=== PATIENT | female | born 1945 | race Caucasian/White ===

== ENCOUNTER 2017-11-02 07:30 | Inpatient (IN) | payer OTHER, MEDICARE ==
[~2017-11-02] VITALS: Ht 167.6 cm; Wt 79.3 kg
[~2017-11-02 07:30] MED LIST: AMLO10TA2 PO; CLON0.5T PO; ECASA81 PO; EZET10 PO; FLUO20CA12 PO; LEVO125T4 PO; LIPI10TA PO; LOSA100T PO; METF500T PO; OMEP20TA93 PO; SPIR25TA PO; TYLE325T PO
[2017-11-02] MEDS ORDERED: SODIUM CHLORID 0.9% 500 ML IV PRN (08:30)
[2017-11-02] MEDS ORDERED: LACTATED RINGER'S 1000 ML IV PRN (08:30)
[2017-11-02] MEDS ORDERED: CHLORHEXIDINE GLUCONATE 2 % 1 PACK (2 CLOTHS) TOPICAL PRN (08:30)
[2017-11-02] MEDS ORDERED: POVIDONE IODINE 5% (ANTISEPSIS KIT) 4 APPLICATIONS EACH NARE PRN (08:30)
[2017-11-02] MEDS ORDERED: METOPROLOL TARTRATE 25 MG TAB PO PRN (08:30)
[2017-11-02] MEDS ORDERED: INSULIN HUMAN REGULAR 1,000 UNITS/10 ML VIAL SQ PRN (08:30)
[2017-11-02] MEDS ORDERED: ceFAZolin 2 GM PREMIX 50 ML IV SCH (08:45)
[2017-11-02] MEDS ORDERED: VANCOMYCIN 1 GM/200 ML PREMIX IV SCH (08:45)
[2017-11-02] MEDS ORDERED: CHLORHEXIDINE GLUCONATE 4% SOLN 120 ML BTL TOPICAL SCH (08:45)
[2017-11-02] MEDS ORDERED: LORazepam 2 MG/ML VIAL ONE (08:54)
[2017-11-02] MEDS ORDERED: GENTAMICIN SULFATE 80 MG/2 ML VIAL ONE ×2 (09:44→09:53)
[2017-11-02] MEDS ORDERED: VANCOMYCIN HCL 1000 MG VIAL ONE (10:16)
[2017-11-02] MEDS ORDERED: LIDOCAINE HCL 1% PF 5 ML SYRINGE OTHER ONE (12:00)
[2017-11-02] MEDS ORDERED: LACTATED RINGER'S 1000 ML INJ 1,000 ML IV ONE (12:00)
[2017-11-02] MEDS ORDERED: ONDANSETRON HCL 4 MG/2 ML VIAL IV ONE (12:00)
[2017-11-02] MEDS ORDERED: ROCURONIUM INJ 50 MG/5 ML SYRINGE IV PUSH ONE (12:00)
[2017-11-02] MEDS ORDERED: ePHEDrine/NS 25 MG/5 ML SYRINGE IV ONE (12:00)
[2017-11-02] MEDS ORDERED: PROPOFOL 200 MG/20 ML AMP IV ONE (12:00)
[2017-11-02] MEDS ORDERED: BUPIVACAINE/EPINEPHRINE 0.5% 50 ML VIAL ONE (14:05)
[2017-11-02] MEDS ORDERED: ACETAMINOPHEN 1000 MG/100 ML 100 ML IV ONE (14:09)
--- NOTE | 2017-11-02 14:30 | PD.OP ---
cc: Inderjit Isaac MD Operative Report Date of Surgery: Nov 02, 2017 Preoperative Diagnosis: Lumbar spinal stenosis, L4 5. Spondylolisthesis, L4 5, grade 1. Bilateral right greater than left lumbosacral radiculopathy Postoperative Diagnosis: Same. 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 Resection extra dural lesion, L4 5, right, probable synovial cyst Posterior spinal fusion, L4 5. Posterior lateral interbody fusion, L4 5. Posterior spinal segmental agitation, L4 5 Posterior lateral interbody fusion, L4 5. Placement of interbody cage, L4 5. Major bone grafting of the lumbar spine Anesthesia: Gen. Surgeon: Inderjit Isaac Cradle Placer(s): NAGI Valdes Operation and Findings: EBL: 100 ml NOTE: Emily Valdes PA-C was present for the entire surgical procedure as my workers compensation claims assistant. In my medical opinion her skill and care was necessary for proper management of this patient INDICATIONS: This patient is a 72-year-old female with a grade 1 spondylolisthesis at L4 5 associated with a high-grade spinal stenosis. She has right greater than left leg pain. Investigative studies are consistent with a progressive degenerative stenosis. Despite conservative care, the patient continued to be painful and symptomatically. She presents for surgical treatment. INSTRUMENTATION: Facet Link PROCEDURE: The patient brought to the operating room and anesthetized the supine position. The patient positioned prone on the Krunal frame on the Saurabh table. All pressure points are protected. The back was scrubbed with alcohol followed by Hibiclens followed by ChloraPrep and draped sterilely and antibiotics were given within a routine time window. A timeout was done. Lateral radiographic images used to identify the proper level for the procedure. Compared care for the preoperative studies. Skin markings were made anticipating surgical treatment. A midline exposure was accomplished. Dissection exposed L4 5 level and most of the facet of L4. Retractors allowed good visualization to the outer portion of the facet at L4 5 bilaterally. The posterior spinous process was taken down from the cephalad portion of L5 leaving a portion of the cephalad part of the L4 posterior spinous process and ligament to the L3 level. Under the microscope , a high-speed bur was used to remove the lamina allowing a adequate exposure. There was a high-grade stenosis. To the right of midline there was evidence of an extra dural lesion extending from the facet joint, consistent with a synovial cyst. This was resected decompressing completely the crossing L5 nerve root on both sides. Exposure was better to the left side and this allowed facilitation of placement of an interbody cage and decompression. There was a subtotal disc resection. An annulotomy was accomplished for this. The endplates were curetted of cartilaginous material. On the back table a combination of autogenous bone graft and demineralized bone matrix was mixed with 1 cc of Nucel stem cells. This was injected into the disc space having an excellent fill. We used a Stax cage which was placed at midline and elevated to 10 mm. Additional bone graft was placed into the disc space. The facet Link instrumentation system was utilized and held provisionally. Under biplanar fluoroscopy guidewires were placed in good position. Some adjustment for made. Alignment appeared be very satisfactory. We used the 25 oblique angle checking to make sure there across the facet joint in good position. A drill was utilized followed by placement of a 30 mm screws. Screw position appeared be very satisfactory and no complication was appreciated. Additional bone grafting was positioned. The wound had been irrigated With Antibiotic Irrigation Local Anesthesia Was Utilized. A Small Amount of Vancomycin Powder Was Placed Deep Followed by Closing the Fascia and Further Local Block. Minimize Powder Was Placed Adjacent to the Fascia and Then Was Closed with 2-0 Vicryl Followed by 3-0 Vicryl, Steri-Strips and Benzoin and a Sterile Dressing. Intraoperative X-Rays Were Obtained. There Was No Complication Was Appreciated. Alignment Appeared to Be Very Satisfactory. FINDINGS: There was a high-grade stenosis at the L4 5 level. The decompression was very satisfactory. There was an extradural synovial cyst to the right of midline which was resected. There was no complication was appreciated. Inderjit Isaac MD Nov 02, 2017 14:30
[2017-11-02] MEDS ORDERED: HYDR-3580 PO (14:32)
[2017-11-02] MEDS ORDERED: DO NOT ADM ANY ANTICOAGULANT DRUGS PRN (14:45)
[2017-11-02] MEDS ORDERED: MIDAZOLAM HCL 2 MG/2 ML VIAL ONE (14:55)
[2017-11-02] MEDS ORDERED: ALUMINUM/MAGNESIUM/SIMETH 30 ML CUP PO PRN (15:00)
[2017-11-02] MEDS ORDERED: ONDANSETRON HCL 4 MG/2 ML VIAL IV PUSH PRN (15:15)
[2017-11-02] MEDS ORDERED: LACTATED RINGER'S 1000 ML INJ 1,000 ML IV SCH (15:15)
[2017-11-02] MEDS ORDERED: NALOXONE HCL 0.4 MG/ML AMP IV PUSH PRN (15:30)
[2017-11-02] MEDS ORDERED: MORPHINE SULFATE 8 MG/ML INJ IV PUSH PRN (15:45)
[2017-11-02] MEDS ORDERED: Post-op Orders (for Pharmacy) XX ONE (16:00)
--- NOTE | 2017-11-02 16:17 | RADRPT ---
EXAM DATE/TIME: 11/02/2017 14:01 [facility] COMPARISON: No previous studies available for comparison. INDICATIONS : Lumbar spine L4-5 interbody cage with posteriorlateral fusion and facet link. OR. MEDICAL HISTORY : None. SURGICAL HISTORY : None. ENCOUNTER: Initial ACUITY: 1 day PAIN SCORE: Non-responsive. LOCATION: Lumbar L4-5 FINDINGS: Cage is noted at L4-5. Hardware is noted at the L5 level posteriorly. There is grade I anterolisthesi s of L4 in relation to L5. CONCLUSION: Posterior hardware and cage placed within the lower lumbar spine as described above. Grade I anteroli sthesis of L4 in relation to L5. Sohail Low MD on November 02, 2017 at 16:13 Board Certified Radiologist. This report was verified electronically.
[2017-11-02] MEDS ORDERED: ACETAMINOPHEN/HYDROcodone 325 MG/7.5 MG TAB PO PRN (16:45)
[2017-11-02 16:50] VITALS: BP 126/66; PULSE 95; RESP 18; TEMP 95.8; O2SAT 95
[2017-11-02] MEDS ORDERED: BISACODYL 10 MG SUPP RECTAL PRN (17:00)
[2017-11-02] MEDS ORDERED: SOD PHOSPHATE/SOD BIPHOSPHATE (ADULT) ENEMA 133ML PR PRN (17:00)
[2017-11-02] MEDS: metFORMIN HCL 500 MG TAB PO SCH (18:00)
[2017-11-02 20:00] VITALS: BP 129/60; PULSE 101; TEMP 96.2; O2SAT 95
[2017-11-02] MEDS ORDERED: ZOLPIDEM TARTRATE 5 MG TAB PO PRN (21:00)
[2017-11-02] MEDS ORDERED: clonazePAM 0.5 MG TAB PO SCH (21:00)
[2017-11-02] MEDS ORDERED: ATORVASTATIN 10 MG TAB PO SCH (21:00)
[2017-11-03] VITALS: BP 147/64; PULSE 94; RESP 16; TEMP 98; O2SAT 96
[2017-11-03] MEDS: ACETAMINOPHEN/HYDROcodone 325 MG/7.5 MG TAB PO PRN ×3 (00:20→12:42)
[2017-11-03 04:00] VITALS: BP 122/55; PULSE 82; RESP 18; TEMP 97.8; O2SAT 95
[2017-11-03] MEDS ORDERED: LEVOTHYROXINE SODIUM 125 MCG TAB PO SCH (06:00)
[2017-11-03 06:58] LABS: HEMATOCRIT 24.8 % (35.0-46.0); HEMOGLOBIN 8.8 GM/DL (11.6-15.3)
--- NOTE | 2017-11-03 07:58 | PD.ORT.PN ---
Subjective Subjective Remarks Doing well. Able to get to the bedside commode with minimal assistance Pain controlled Objective Vitals Vital Signs Date Time Temp Pulse Resp B/P (MAP) Pulse Ox O2 Delivery O2 Flow Rate FiO2 11/03/17 04:00 97.8 82 18 122/55 (77) 95 11/03/17 00:00 98.0 94 16 147/64 (91) 96 11/02/17 20:00 96.2 101 129/60 (83) 95 11/02/17 16:50 95.8 95 18 126/66 (86) 95 11/02/17 16:15 98.2 92 16 120/62 (81) 95 Room Air 11/02/17 16:00 94 16 121/63 (82) 94 Room Air 11/02/17 15:45 95 16 122/63 (82) 100 Nasal Cannula 2 11/02/17 15:30 99 16 132/64 (86) 98 Nasal Cannula 2 11/02/17 15:15 101 15 136/63 (87) 96 Nasal Cannula 2 11/02/17 15:00 105 15 148/65 (92) 100 Nasal Cannula 3 11/02/17 14:45 98.7 110 16 155/67 (96) 99 Nasal Cannula 3 11/02/17 09:00 98.2 72 18 141/68 (92) 98 I/O 11/02/17 11/02/17 11/02/17 11/03/17 11/03/17 11/03/17 07:00 15:00 23:00 07:00 15:00 23:00 Intake Total 1300 ml 1200 ml 200 ml Output Total 100 ml 350 ml Balance 1200 ml 850 ml 200 ml Intake Oral 1200 ml 200 ml Other 1300 ml Output Urine Total 50 ml 350 ml Estimated Blood Loss 50 ml # Voids 2 Result Diagram: 11/03/17 0504 Objective Remarks Dressing dry. Motor examination both legs normal. Sensation normal. No calf tenderness Assessment & Plan Ortho Post Op Day #: 1 Problem List: Assessment and Plan Lumbar spinal stenosis, L4 5, moderate to severe. Spondylolisthesis L4 5, grade 1. Surgery: Bilateral laminectomy, posterior spinal fusion, posterior spinal instrumentation, interbody cage: POD #1. PLAN: Out of bed with brace [place] for pain. No dressing change. Ambulation with walker. Discharge to home, probably today. Home healthcare. Home physical therapy. Follow-up in 2 weeks Inderjit Isaac MD Nov 03, 2017 07:58
[2017-11-03 08:00] VITALS: BP 147/67; PULSE 89; RESP 16; TEMP 98; O2SAT 95
[2017-11-03] MEDS ORDERED: WALKER WHEELS/F1 MIS (08:00)
[2017-11-03] MEDS ORDERED: COMMODE 3-IN-11 MIS (08:01)
--- NOTE | 2017-11-03 08:01 | HHI.DCPOC ---
Discharge Care Plan Diagnosis: (1) Lumbar spinal stenosis (2) Lumbar spine instability Your Health Problems Are: Incision/Drains Inflammation Goals to Promote Your Health * To prevent worsening of your condition and complications * To maintain your health at the optimal level Directions to Meet Your Goals Take your medications as prescribed Follow your dietary instruction Follow activity as directed Keep your appointments as scheduled Take your immunizations and boosters as scheduled If your symptoms worsen call your PCP, if no PCP go to Urgent Care Center or Emergency Room Smoking is Dangerous to Your Health. Avoid second hand smoke Call the 24-hour hour crisis hotline for domestic abuse at Lulu Prado Nov 03, 2017 08:01
[2017-11-03] MEDS: metFORMIN HCL 500 MG TAB PO SCH (08:02)
--- NOTE | 2017-11-03 08:02 | HHI.FF ---
Face to Face Verification Diagnosis: (1) Lumbar spinal stenosis (2) Lumbar spine instability Physical Therapy Gait training, Safety evaluation, Transfer training, bed to chair S/P Spinal Fusion: Gait training with walker, Weight bearing as tolerated, No twisting of torso, No bending Additional Instructions PT 4 days/wk for 2 weeks. WBAT. Out of bed with lumbar brace for 10 weeks. Walker as needed. Nursing RN Days per Week: 2 x Week(s): 1 Dressing Changes: Do not change dressing Additional Instructions Vitals assessment. Dressing assessment. Do not change unless saturated. I have seen patient Georgina Dillard on 11/03/17. My clinical findings support the need for the requested home health care services because: Limited ability to care for self High risk of falls I certify that my clinical findings support that this patient is homebound because: Post-op weakness Unsteady gait/balance Lulu Prado Nov 03, 2017 08:02
--- NOTE | 2017-11-03 08:03 | HHI.DS ---
Lulu Prado 11/03/17 0803: Discharge Summary Admission Date Nov 02, 2017 at 07:57 Discharge Date: Nov 03, 2017 Admitting Diagnosis see below Diagnosis: (1) Lumbar spinal stenosis Diagnosis: Principal ICD Codes: M48.061 - Spinal stenosis, lumbar region without neurogenic claudication (2) Lumbar spine instability Diagnosis: Principal ICD Codes: M53.2X6 - Spinal instabilities, lumbar region Brief History This is a 72 year old female patient CBC/BMP: 11/03/17 0504 Significant Findings Laboratory Tests Test 11/03/17 05:04 Hemoglobin 8.8 GM/DL (11.6-15.3) Hematocrit 24.8 % (35.0-46.0) PE at Discharge Dressing dry. Motor examination both legs normal. Sensation normal. No calf tenderness Discharge Disposition: Discharge Home Discharge Instructions Diet Instructions: As Tolerated, No Restrictions Activities You Can Perform: See Additionl Instruction Additional Activity Instruc.: Brace full-time when out of bed Inderjit Isaac MD 11/04/17 1753: Discharge Summary Discharge Date: Nov 03, 2017 Diagnosis: CBC/BMP: 11/03/17 0504 Hospital Course The patient was admitted and had a relatively routine postoperative course. She had surgical treatment with a minimal blood loss. The first postoperative day, she is up out of bed and ambulating with a brace on her lumbar spine. She was tolerating oral medications well. She was felt to be candidate for discharge to home Pt Condition on Discharge: Good Discharge Disposition: Discharge Home Discharge Instructions Activities You Can Perform: Regular-No Restrictions (out of bed with brace) Lulu Prado Nov 03, 2017 08:03 Inderjit Isaac MD Nov 04, 2017 17:53
[2017-11-03] MEDS ORDERED: PANTOPRAZOLE SOD 20 MG DELAYED RELEASE TAB PO SCH (09:00)
[2017-11-03] MEDS ORDERED: FLUoxetine HCL 20 MG CAP PO SCH (09:00)
[2017-11-03] MEDS ORDERED: SPIRONOLACTONE 25 MG TAB PO SCH (09:00)
[2017-11-03] MEDS ORDERED: LOSARTAN 50 MG TAB PO SCH (09:00)
[2017-11-03] MEDS ORDERED: EZETIMIBE 10 MG TAB PO SCH (09:00)
[2017-11-03] MEDS ORDERED: DOCUSATE SODIUM 100 MG CAP PO SCH (21:00)
== END 2017-11-03 16:15 | disposition home health service (06) | DRG 460 ==
LOC: HSDI 07:57 → N06B 16:49
PROVIDERS: ADMIT Orthopaedic Surgery Orthopaedic Surgery of the Spine; ATTEND Orthopaedic Surgery Orthopaedic Surgery of the Spine
PROC: 0ST20ZZ Resection of Lumbar Vertebral Disc, Open Approach (ICD-10-PCS; 2017-11-02)
PROC: 0MT Bursae and Ligaments, Resection (ICD-10-PCS; 2017-11-02)
PROC: 0SG00AJ Fusion of Lumbar Vertebral Joint with Interbody Fusion Device, Posterior Approach, Anterior Column, Open Approach (ICD-10-PCS; principal; 2017-11-02 10:41)
DX: M48.061 Spinal stenosis, lumbar region without neurogenic claudication (principal); M53.2X6 Spinal instabilities, lumbar region; M54.17 Radiculopathy, lumbosacral region; M71.38 Other bursal cyst, other site; M43.16 Spondylolisthesis, lumbar region
CPT/HCPCS: 72110; 76000; 85014; 85018; 86850; 86900; 86901; 94150; C1713; J0131; J0690; J1580; J2060; J2250; J2405; J3010; J3370; J7120